=== PATIENT | male | born 1950 | race Caucasian/White ===

== ENCOUNTER 2021-08-10 04:46 | Emergency (ER) | payer OTHER ==
[2021-08-10 05:59] LABS: RED BLOOD COUNT 4.81 M/UL (4.20-5.50); WHITE BLOOD COUNT 9.9 K/UL (4.5-11.0)
[2021-08-10 06:21] LABS: BUN/CREATININE RATIO 17 (0-10)
[2021-08-10] MEDS ORDERED: MIRALAX 119 GR119 GM PO (08:03)
== END 2021-08-10 09:22 | disposition home or self-care (01) ==
LOC: ER1 04:46
PROVIDERS: Family Medicine
DX: K59.00 Constipation, unspecified (principal); E11.9 Type 2 diabetes mellitus without complications; E78.5 Hyperlipidemia, unspecified; I10 Essential (primary) hypertension
CPT/HCPCS: 80053; 82962; 83690; 85025; 99284; Q9967

== ENCOUNTER 2021-11-10 09:47 | Emergency (ER) | payer OTHER ==
[~2021-11-10 09:47] MED LIST: MIRALAX 119 GR119 GM PO
== END 2021-11-10 12:22 | disposition home or self-care (01) ==
LOC: ER1 09:47
DX: S80.01XA Contusion of right knee, initial encounter (principal); E11.9 Type 2 diabetes mellitus without complications; I10 Essential (primary) hypertension; W01.0XXA Fall on same level from slipping, tripping and stumbling without subsequent striking against object, initial encounter; Y92.009 Unspecified place in unspecified non-institutional (private) residence as the place of occurrence of the external cause
CPT/HCPCS: 73564; 90471; 90714; 99283